=== PATIENT | male | born 1980 | race Caucasian/White ===

== ENCOUNTER 2022-12-19 09:08 | Outpatient (REF) | payer BC, SELFPAY ==
--- NOTE | ~2022-12-19 | XR_ITS ---
EXAMINATION: XR CERVICAL SPINE CLINICAL INFORMATION: Cervicalgia Chronic cervical pain, history of migraines COMPARISON: None available. TECHNIQUE: 3 views of the cervical spine were obtained. FINDINGS: The tip of the odontoid is obscured on the open-mouth view. There are no prevertebral soft tissue or bony abnormalities demonstrated. No compression fractures or subluxations are identified. Alignment is maintained at the atlanto-axial articulation. There is mild disc space narrowing at C5-C6 with small marginal osteophytes. No endplate changes are seen. The prevertebral soft tissues are normal. XR/XR cervical spine 3V IMPRESSION: Mild degenerative disc disease at C5-C6.
== END 2022-12-19 09:09 | disposition home or self-care (01) ==
LOC: HO.XRAY 09:08
PROVIDERS: PCP Nurse Practitioner Family; Visit Provider Nurse Practitioner Family
DX: M54.2 Cervicalgia (principal); Z76.89 Persons encountering health services in other specified circumstances; E55.9 Vitamin D deficiency, unspecified; E78.1 Pure hyperglyceridemia; R73.01 Impaired fasting glucose; G43.109 Migraine with aura, not intractable, without status migrainosus
CPT/HCPCS: 36415; 72040; 80053; 80061; 82306; 82607; 82746; 84443; 85025

== ENCOUNTER 2023-04-02 10:14 | Outpatient (AMB) | payer BC, SELFPAY ==
[2023-04-02 10:19] VITALS: BP 140/90; PULSE 81; O2SAT 97; BMI 31.6
--- NOTE | 2023-04-02 10:19 | A.OFFPC_ITS ---
Vital Signs 3 04/02/23 10:19 04/02/23 10:52 Height 5 ft 9 in Weight 214 lb 0.2 oz BMI 31.6 BP 140/90 H 140/82 H Blood Pressure Location Lt brachial Lt brachial Position Sitting Sitting Pulse 81 Pulse Source Pulse Oximeter Pulse Oximetry (%) 97 Oxygen Delivery Method Room Air Intake Visit Reasons: Physical Exam Intake Note: Patient is here today for a physical. Claims Auditor Required: No Allergies No Known Allergies Allergy (Verified 04/02/23 10:37) Medication List - Last Reconciled 04/02/23 by SYDNI Lombardi cholecalciferol (vitamin D3) 25 mcg PO DAILY fenofibrate 54 mg PO DAILY Tobacco use date assessed: 04/02/23 Dental Screening Dental Screen Date: 04/02/23 Did you have a dental visit in the last 12 months?: No Did you have a dental problem in the last 6 months where you did not have access to dental care?: No HPI Physical Exam 2 HPI0 Details Patient is a 43-year-old male who presents today for physical exam. Medical history significant for migraine with aura-stable with [id number] Excedrin and aleve p.r.n., neck pain stable, costochondritis stable, elevated fasting glucose, hypertriglyceridemia, low vitamin-D level, smoker-patient reports smoking 1 pack for 3 days - smokes since age 18 - interested in smoking cessation. Today we discussed patient's need for tetanus vaccine. Patient denies problems with his eyes, he does not see eye doctor. Will call for dental exam. In addition, patient reports right posterior neck nontender cyst for the past some time would like evaluation for this. In addition, patient reports that his girlfriend and him are trying for a baby - girlfriend tested positive for cystic fibrosis gene, patient is asking for this test as well, girlfriend is active with [facility], advised patient to contact [facility] for additional testing. Patient denies shortness of breath or chest pain. [facility] Medical History Encounter to establish care Surgical History History of hernia surgery Family History Mother No problems noted. Father No problems noted. Social History Housing: House Patient Tobacco Use Status: Current everyday Tobacco user Cigarettes Per Day: 8 service: No Current occupational status: employed Cognitive needs: No Hearing needs: No Vision needs: No Questionnaire PHQ-9 Over the last 2 weeks, how often have you been bothered by any of the following problems? 1. Little interest or pleasure in doing things: several days 2. Feeling down, depressed, or hopeless: several days 3. Trouble falling or staying asleep, or sleeping too much: not at all 4. Feeling tired or having little energy: not at all 5. Poor appetite or overeating: not at all 6. Feeling bad about yourself - or that you are a failure or have let yourself or your family down: not at all 7. Trouble concentrating on things, such as reading the newspaper or watching television: not at all 8. Moving or speaking so slowly that other people could have noticed. Or the opposite - being so fidgety or restless that you have been moving around a lot more than usual: not at all 9. Thoughts that you would be better off or of hurting yourself in some way: not at all Total score: 2 Depression Screening Interpretation: Negative Depression Screening Done: Yes 84284 - PHQ-9 Billing: Yes Source: Developed by Drs. Felice Barreto, Mary Larios, Nikolay Valladares and colleagues, with an educational elder from [employer]. Thrive Questionnaire Date Thrive assessed: 04/02/23 I am a: Patient What is your living situation today?: I have a steady place to live Within the past 12 months, did the food you bought not last and you didn't have the money to get more?: Never true Within the past 12 months, did you worry whether your food would run out before you got money to buy more?: Never true Do you have trouble paying for medicines?: No Do you have trouble getting transportation to medical appointments?: No Do you have trouble paying your heating and electricity bill?: No Do you have trouble taking care of your child, family member or friend?: No Do you have trouble with day-to-day activities such as bathing, preparing meals, shopping, managing finances, etc.?: No Are you currently unemployed and looking for a job?: No Are you interested in more education?: No Currently or been in a relationship where the following occur: no concerns reported AUDIT C Alcohol Use Questionnaire (AUDIT-C) 1. How often do you have a drink containing alcohol?: 2-3 times a week 2. How many drinks containing alcohol do you have on a typical day when you are drinking?: 1 or 2 3. How often do you have six or more drinks on one occasion?: Never Total Score: 3 Score Reviewed/Action Taken: No NATHAN-7 AMB Questionnaire NATHAN-7 Date NATHAN - 7 assessed: 04/02/23 Feeling nervous, anxious, or on edge: 1 = Several days Not being able to stop or control worryin = Several days Worrying too much about different things: 0 = Not at all Trouble relaxin = Not at all Being so restless that it is hard to sit still: 0 = Not at all Becoming easily annoyed or irritable: 0 = Not at all Feeling afraid as if something awful might happen: 0 = Not at all Total NATHAN-7 score (0-4 normal; 5-9 mild; 10-14 moderate; 15-21 severe): 2 Source: Developed by Drs. Felice Barreto, Mary Larios, Nikolay Valladares and colleagues, with an educational elder from [employer]. NATHAN-7 Assessment Billing NATHAN-7 Assessment Tool: NATHAN-7 Assessment 07409 Review of Systems Const Denies body aches, Denies chills, Denies fever(s) and Reports headache(s) (Intermittent) Eyes Denies change in vision ENT Denies dizziness, Denies otalgia, Reports headache(s) (Intermittent), Denies nasal discharge, Denies sinus pain and Denies sore throat Card Denies chest pain, Denies edema, Denies lightheadedness and Denies dyspnea Resp Denies cough and Denies dyspnea GI Denies constipation, Denies diarrhea, Denies nausea and Denies vomiting Denies dysuria Musc Denies myalgias Skin/Breast Reports as per HPI and Denies rash Neuro Denies dizziness and Reports headache(s) (Intermittent) Physical exam (Primary Care) Vital Signs: Last Vital Signs Pulse 81 04/02/23 10:19 BP 140/90 H 04/02/23 10:19 Pulse Ox 97 04/02/23 10:19 Oxygen Delivery Method Room Air 04/02/23 10:19 BMI result Body Mass Index 31.6 Tobacco/Smoking Status: Tobacco use Status Tobacco use date assessed 04/02/23 04/02/23 10:21 Patient Tobacco Use Status Current everyday Tobacco 04/02/23 10:21 PHQ-9: PHQ-9 Score PHQ-9: Total score 2 04/02/23 10:39 Depression Screening Interpretation: Negative Thrive Assessment: Date of Thrive Assessment Date Thrive assessed 04/02/23 04/02/23 10:21 Currently or been in a relationship where the following occur: no concerns reported Const General: cooperative and no acute distress Orientation/consciousness: patient oriented x3 HENMT Head: Yes normocephalic and Yes atraumatic Ears: TM's normal bilaterally Face and sinus: Yes sinuses nontender Mouth: oropharynx normal and moist mucous membranes Throat: Yes posterior oropharynx normal Eyes General: appearance normal, both eyes and all related structures Pupils: Equal, round and reactive pupils present EOM: EOMs intact bilaterally Neck Neck: Yes normal visual inspection, Yes full ROM and Yes no lymphadenopathy Thyroid: Thyroid normal Resp Effort & Inspection: normal respiratory effort and able to speak in complete sentences Auscultation: clear to auscultation bilaterally, no crackles, no rales, no rhonchi and no wheezes Cardio Rate: regular rate Rhythm: regular rhythm Heart sounds: S1 normal heart sound present, S2 normal heart sound present and no murmurs GI Palpation (GI): Soft to palpation, not firm, nontender, no guarding, not rigid and no hepatosplenomegaly Auscultation: normal bowel sounds General: No CVA tenderness Back/Spine/Pelvis Back: No CVA tenderness Skin Full body images: 2 1. Right posterior neck with nontender raised area about 1.5cm skin is intact, no signs of infection noted Neuro General: patient oriented x3 Cranial nerves: Yes Equal, round and reactive pupils present Gait exam (Neuro): Normal gait present Extrem General: Yes full ROM and No edema Immunizations Boostrix Tdap 2.5 Lf unit-8 mcg-5 Lf/0.5 mL intramuscular syringe Performing Provider: SYDNI Lombardi [facility] Administered by: HARVINDER Rai on 04/02/23 10:49 2 Dose Route Admin Location Dispensed Lot Number Expiration Date [place] [employer] 0.5 mL IM Left Deltoid 0.5 mL [id number] 05/21/25 52072-455-55 [employer] 2 VIS Given Date VIS Provided VIS Publication Date 04/02/23 Single Vaccine 21 Eligibility Eligibility Date Funding Source Not [facility] Eligible 04/02/23 Private Assessment and Plan Assessment & Plan (1) Migraine with aura: Code(s): G43.109 - Migraine with aura, not intractable, without status migrainosus Plan: Patient reports 1 headache every couple weeks. Stable with [id number] Excedrin and aleve. (2) Cyst of skin: Code(s): L72.9 - Follicular cyst of the skin and subcutaneous tissue, unspecified Plan: Right posterior neck with nontender raised area about 1.5cm skin is intact, no signs of infection noted General surgery referral for an evaluation and treatment (3) Smoker: Code(s): F17.200 - Nicotine dependence, unspecified, uncomplicated Plan: Encouraged smoking cessation Nicotine patch sent (4) Adult general medical exam: Code(s): Z00.00 - Encounter for general adult medical examination without abnormal findings Plan: Repeat in 1 year (5) Low vitamin D level: Code(s): R79.89 - Other specified abnormal findings of blood chemistry Plan: Continue vitamin-D 25 mcg daily (6) Hypertriglyceridemia: Code(s): E78.1 - Pure hyperglyceridemia Plan: Continue fenofibrate 54 mg daily Low-cholesterol and low-carbohydrate diet Patient was encouraged to complete his blood work (7) Elevated fasting glucose: Code(s): R73.01 - Impaired fasting glucose Plan: Patient was encouraged to complete A1c (8) Obesity (BMI 30.0-34.9): Code(s): E66.9 - Obesity, unspecified Plan: Patient lost 11 lb in the last 3 months-congratulated Continue healthy food choices and exercise as tolerated Plan Follow-up in 3 months or sooner as needed Orders: Orders 2 TDaP Immunization Today Z23 - Encounter for immunization Referrals 2 General Surgery Referral L72.9 - Follicular cyst of the skin and subcutaneous tissue, unspecified Medications: New 2 nicotine 1 patch transdermal Q24H 28 ea 1RF F17.200 - Nicotine dependence, unspecified, uncomplicated Refilled 2 fenofibrate 54 mg PO DAILY 90 tabs 1RF E78.1 - Pure hyperglyceridemia Coding Level of Care Code Est Pt Prev Care 40-64y(18686) Diagnoses Migraine with aura G43.109 Cyst of skin L72.9 Smoker F17.200 Adult general medical exam Z00.00 Low vitamin D level R79.89 Hypertriglyceridemia E78.1 Elevated fasting glucose R73.01 Obesity (BMI 30.0-34.9) E66.9 Additional Codes NATHAN-7 Assessment Billing - NATHAN-7 Assessment Tool: NATHAN-7 Assessment 00611 ([id number])
[2023-04-02 10:52] VITALS: BP 140/82
== END 2023-04-02 11:00 | disposition home or self-care (01) ==
PROVIDERS: PCP Nurse Practitioner Family; Visit Provider Nurse Practitioner Family
DX: Z00.00 Encounter for general adult medical examination without abnormal findings (principal); G43.109 Migraine with aura, not intractable, without status migrainosus; L72.9 Follicular cyst of the skin and subcutaneous tissue, unspecified; F17.210 Nicotine dependence, cigarettes, uncomplicated; R79.89 Other specified abnormal findings of blood chemistry; E78.1 Pure hyperglyceridemia; R73.01 Impaired fasting glucose; E66.9 Obesity, unspecified; Z23 Encounter for immunization
CPT/HCPCS: 90471; 90715; 99396

== ENCOUNTER 2023-04-15 09:03 | Outpatient (REF) | payer BC, SELFPAY | END 2023-04-15 09:04 | disposition home or self-care (01) | LOC: HO.LNP 09:03 | PROVIDERS: PCP Nurse Practitioner Family; Referring Provider Nurse Practitioner Family; Visit Provider Surgery | DX: L72.0 Epidermal cyst (principal) | CPT/HCPCS: 11404; 88304 ==

== ENCOUNTER 2023-04-15 09:03 | Outpatient (AMB) | payer BC, SELFPAY ==
[2023-04-15 09:10] VITALS: BP 153/90; PULSE 94; BMI 32.0
--- NOTE | 2023-04-15 09:10 | A.OFFVIS_ITS ---
Intake Vital Signs 04/15/23 09:10 Height 5 ft 9 in Weight 217 lb BMI 32.0 BP 153/90 H Blood Pressure Location Rt brachial Position Sitting Pulse 94 Intake Visit Reasons: Cyst~Rt post neck Intake Note: Patient referred for cyst on Rt post neck. Has been present for about 10+ yrs. No hx of infection at site. 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 Increasing in size, becoming more symptomatic. Patient wished to have removed. He has no such lesions elsewhere. Chart was reviewed patient evaluated REPLACED BY [facility] Medical History Encounter to establish care Surgical History History of hernia surgery Family History Mother No problems noted. Father No problems noted. Social History (Updated 04/15/23 @ 09:12 by HARVINDER Aden) Housing: House Alcohol intake: current Alcohol intake frequency: holidays/special occasions only Alcohol type: hard liquor Patient Tobacco Use Status: Current everyday Tobacco user Cigarettes Per Day: 8 service: No Current occupational status: employed Cognitive needs: No Hearing needs: No Vision needs: No Physical Exam Vital Signs: Last Vital Signs Pulse 94 04/15/23 09:10 BP 153/90 H 04/15/23 09:10 BMI result Body Mass Index 32.0 HEENT Other: Approximately 4 x 3 cm large right posterior neck mass consistent with a sebaceous cyst. Office Procedures Excision Details: Risks, benefits, alternatives of excision of sebaceous cyst of the right upper back reviewed the patient and included but not limited to bleeding, infection, recurrence, numbness, pain, scarring, wound dehiscence, and seroma, the patient was to proceed. All questions were answered. Consent was signed. After appropriate positioning, and pre marking, patient underwent 1% lidocaine and Betadine prep and a transverse bi- elliptical incision was made around the cyst in question which measures approximately 4 x 3 cm. Specimen was excised and sent to pathology. Wound was irrigated, secured hemostasis, and closed using running subcuticular 3-0 Vicryl suture followed by Steri-Strips and sterile dressings. Patient tolerated procedure well. 22457-dmpkf/arms/legs 3.1-4cm Procedure code (CPT) selection complete Office Meds lidocaine 1 %-epinephrine 1:100,000 injection solution Performing Provider: Raymond Keen MD Performing Location: [facility] [place] General Surgeons Administered by: Raymond Keen MD on 04/15/23 09:46 Dose Route Admin Location Dispensed Lot Number Expiration Date [facility] Att[employer] Associate 10 mL Infiltration 10 mL Assessment & Plan Assessment & Plan (1) Cyst of skin: Code(s): L72.9 - Follicular cyst of the skin and subcutaneous tissue, unspecified Plan: Patient has been given very specific local instructions including avoiding strenuous activities for next 2 weeks time, ice to wound periodically today and tomorrow, may shower in 2 days, and will see me in a proximal weeks time or p.r.n.. Orders: Orders Surgical Today L72.9 - Follicular cyst of the skin and subcutaneous tissue, unspecified AMB Excision Today L72.9 - Follicular cyst of the skin and subcutaneous tissue, unspecified Coding Level of Care Code New Pt Level 5 (13658) Diagnoses Cyst of skin L72.9 CPT Codes Trunk/Arms/Legs - CPT: 01328-ncpor/arms/legs 3.1-4cm ([id number])
== END 2023-04-15 09:36 | disposition home or self-care (01) ==
PROVIDERS: PCP Nurse Practitioner Family; Referring Provider Nurse Practitioner Family; Visit Provider Surgery
DX: L72.0 Epidermal cyst (principal)
CPT/HCPCS: 11404; 99204

== ENCOUNTER 2023-04-22 09:09 | Outpatient (AMB) | payer BC, SELFPAY ==
--- NOTE | 2023-04-22 09:14 | A.OFFVIS_ITS ---
Intake Vital Signs 04/22/23 09:15 Height 5 ft 9 in Weight 216 lb BMI 31.9 BP 143/88 H Blood Pressure Location Rt brachial Position Sitting Pulse 94 Intake Visit Reasons: S/p Exc Cyst~Rt post neck Intake Note: Patient here s/p exc on Rt post neck. Reports incision healing well. Denies oozing, pain or discomfort. 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 He has no wound issues or complaints. Pathology is benign. [facility] Medical History Encounter to establish care Surgical History Hx of surgical procedure (04/15/23) History of hernia surgery Family History Mother No problems noted. Father No problems noted. Social History Housing: House Alcohol intake: current Alcohol intake frequency: holidays/special occasions only Alcohol type: hard liquor Patient Tobacco Use Status: Current everyday Tobacco user Cigarettes Per Day: 8 service: No Current occupational status: employed Cognitive needs: No Hearing needs: No Vision needs: No Physical Exam Vital Signs: Last Vital Signs Pulse 94 04/22/23 09:15 BP 143/88 H 04/22/23 09:15 BMI result Body Mass Index 31.9 Neck Other: Right posterior neck wound healing uneventfully. Assessment & Plan Assessment & Plan (1) Cyst of skin: Code(s): L72.9 - Follicular cyst of the skin and subcutaneous tissue, unspecified Plan Patient has been given local instructions, and will follow-up p.r.n. Coding Level of Care Code Global (20362) Diagnoses Cyst of skin L72.9
[2023-04-22 09:15] VITALS: BP 143/88; PULSE 94; BMI 31.9
== END 2023-04-22 09:34 | disposition home or self-care (01) ==
PROVIDERS: PCP Nurse Practitioner Family; Visit Provider Surgery
DX: L72.9 Follicular cyst of the skin and subcutaneous tissue, unspecified (principal)
CPT/HCPCS: 99024

== ENCOUNTER → 2023-04-22 09:09 | Outpatient (BNVA) | payer BC, SELFPAY | PROVIDERS: PCP Nurse Practitioner Family; Visit Provider Surgery ==